=== PATIENT | male | born 1945 | race Caucasian/White ===

== ENCOUNTER 2016-06-22 12:03 | Emergency (ER) | payer MEDICARE, BC ==
[2016-06-22 12:12] VITALS: TEMP 97.7
--- NOTE | 2016-06-22 12:29 | C.PDOC ---
History Of Present Illness 70-year-old male, presents to the emergency department with complaints of worsening swelling of lower extremities. Patient with no fever, chest pain or shortness of breath. Referred to ED by podiatry. REFERRED PODIATRY FOR EVAL. WORSENING CHRONIC R>L SWELLING. NO FEVER, CP, SOB. EXAM NAD NONTOXIC EXT R>L CHRONIC EDEMA. AROM WO DIFF SKIN CHRONIC CHANGES, NO ERYTHEMA ULCERATION, WOUNDS. INTACT. REMAINDER NEG Time Seen by Provider: 06/22/16 12:18 Chief Complaint (Nursing): Lower Extremity Problem/Injury History Per: Patient History/Exam Limitations: no limitations Past Medical History Reviewed: Historical Data, Nursing Documentation, Vital Signs Vital Signs: Last Vital Signs Temp 97.7 F 06/22/16 12:07 Pulse 62 06/22/16 12:07 Resp 18 06/22/16 12:07 BP 153/81 H 06/22/16 12:07 Pulse Ox 98 06/22/16 15:18 - Medical History PMH: Benign Prostatic Hyperplasia, CHF, Hypercholesterolemia Family History: States: Unknown Family Hx - Social History Hx Alcohol Use: No Hx Substance Use: No Review Of Systems Except As Marked, All Systems Reviewed And Found Negative. Constitutional: Negative for: Fever, Chills Cardiovascular: Positive for: Edema. Negative for: Chest Pain Respiratory: Negative for: Shortness of Breath Gastrointestinal: Negative for: Vomiting Neurological: Negative for: Weakness, Numbness Physical Exam - Physical Exam Appears: Non-toxic, No Acute Distress Skin: Warm, Dry, Other ( CHRONIC CHANGES, NO ERYTHEMA ULCERATION, WOUNDS. INTACT.) Head: Atraumatic, Normacephalic Eye(s): bilateral: Normal Inspection, PERRL Nose: Normal Oral Mucosa: Moist Lips: Normal Appearing Neck: Normal ROM Cardiovascular: Rhythm Regular Respiratory: Normal Breath Sounds, No Accessory Muscle Use Extremity: Other ( R>L CHRONIC EDEMA. AROM WO DIFF) Neurological/Psych: Oriented x3, Normal Speech ED Course And Treatment - Laboratory Results Result Diagrams: 06/22/16 13:13 06/22/16 13:13 O2 Sat by Pulse Oximetry: 98 - Other Rad DOPPLER RLE X-Ray: Read By Radiologist (TECH REPORT" NEG DVT) Reevaluation Time: 15:47 Reassessment Condition: Unchanged (APPEARS COMFORTABLE, NAD UNCH FROM PRIOR EXAM. 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 ADVISED OF DOPPLER FINDINGS, WILL FU OFFICE Disposition Counseled Patient/Family Regarding: Diagnosis, Need For Followup - Disposition Referrals: YOUR,[facility]OCIATE [Other] Disposition: HOME/ ROUTINE Disposition Time: 15:49 Condition: GOOD Additional Instructions: FOLLOW UP WITH YOUR PMD AND/OR LEAD WAREHOUSE ASSOCIATE. RETURN IF WORSENING SYMPTOMS, DIFFICULTY BREATHING, CHEST PAIN. Instructions: Leg Edema (ED) - Clinical Impression Clinical Impression: Leg swelling - Scribe Statement The provider has reviewed the documentation as recorded by the Sylvesteribreji Toribio All medical record entries made by the Yue were at my direction and personally dictated by me. I have reviewed the chart and agree that the record accurately reflects my personal performance of the history, physical exam, medical decision making, and the department course for this patient. I have also personally directed, reviewed, and agree with the discharge instructions and disposition.
[2016-06-22 13:21] LABS: BASO % 0.3 % (0.0-2.0); EOS # 0.1 K/uL (0.0-0.7); EOS % 1.9 % (0.0-4.0); HEMATOCRIT 38.4 % (35.0-51.0); LYMPH # 1.9 K/uL (1.0-4.3); LYMPH % 32.3 % (20.0-40.0); MEAN CELL VOLUME 76.4 fL (80.0-94.0); MEAN CORPUSCULAR HEMOGLOBIN 23.6 pg (27.0-31.0); MEAN CORPUSCULAR HGB CONC 30.9 g/dL (33.0-37.0); MEAN PLATELET VOLUME 8.2 fL (7.2-11.7); MONO # 0.4 K/uL (0.0-0.8); MONO % 6.6 % (0.0-10.0); NRBC % 0.1 % (0.0-2.0); RED CELL DISTRIBUTION WIDTH 15.1 % (11.5-14.5)
[2016-06-22 13:28] LABS: CHLORIDE 100 mmol/L (98-107); POTASSIUM 4.3 mmol/L (3.6-5.2); SODIUM 136 mmol/L (132-148)
[2016-06-22 13:30] LABS: GFR AFRICAN-AMERICAN > 60
[2016-06-22 13:31] LABS: BLOOD UREA NITROGEN 17 mg/dL (9-20); CALCIUM 8.9 mg/dl (8.6-10.4); CARBON DIOXIDE 25 mmol/L (22-30); GLUCOSE,RANDOM 73 mg/dL (75-110)
[2016-06-22 13:32] LABS: RBC URINE < 1 /hpf (0-3); URINE BILIRUBIN NEGATIVE (NEGATIVE); URINE BLOOD NEGATIVE (NEGATIVE); URINE COLOR Straw (YELLOW); URINE GLUCOSE (UA) NORMAL (Normal); URINE KETONE NEGATIVE (NEGATIVE); URINE LEUKOCYTE ESTERASE NEG Leu/uL (Negative); URINE PROTEIN NEGATIVE (NEGATIVE); URINE UROBILINOGEN NORMAL mg/dL (0.2-1.0); WBC URINE < 1 /hpf (0-5)
[2016-06-22 17:02] VITALS: BP 156/80; PULSE 66; RESP 20; O2SAT 99
--- NOTE | 2016-06-23 08:23 | VASCLAB ---
PROCEDURE: Right Lower Extremity Venous Duplex Exam. HISTORY: chronic foot ulcer, swelling ro dvt PRIORS: None. TECHNIQUE: Right common femoral, femoral, popliteal and posterior tibial, peroneal and great saphenous veins were evaluated. Flow was assessed with color Doppler, compressibility, assessment of phasic flow and augmentation response. Report prepared by LIZZIE Mcbride, RVT FINDINGS: RIGHT: 1. Common Femoral Vein: 1.1. Compressibility - Fully compressible: Thrombus - None: Flow - Phasic: Augmentation -Normal: Reflux - None. 2. Femoral Vein: 2.1. Compressibility - Fully compressible: Thrombus - None: Flow - Phasic: Augmentation -Normal: Reflux - None. 3. Popliteal Vein: 3.1. Compressibility - Fully compressible: Thrombus - None: Flow - Phasic: Augmentation -Normal: Reflux - None. 4. Posterior Tibial Vein: 4.1. Compressibility - : Thrombus - : Flow - : Augmentation -: Reflux - . 5. Peroneal Vein: 5.1. Compressibility - : Thrombus - None: Flow - : Augmentation -: Reflux - . 6. Great Saphenous Vein: 6.1. Compressibility - Fully compressible: Thrombus -None: Flow - Phasic: Augmentation - Normal: Reflux - None. OTHER FINDINGS: Due to bandage on the calf, the peroneal and posterior tibial vein could not be image. IMPRESSION: No evidence of deep or superficial vein thrombosis of the right lower extremity with excellent venous flow. Normal valve function noted of the right side. Normal venous flow noted in the left common femoral vein.
== END 2016-06-22 17:10 | disposition home or self-care (01) ==
LOC: C.ER 12:03
DX: M79.89 Other specified soft tissue disorders (principal)